=== PATIENT | female | born 1965 | race Caucasian/White ===

== ENCOUNTER 2017-04-06 20:12 | Emergency (ER) | payer OTHER ==
[~2017-04-06] VITALS: Ht 162.6 cm; Wt 86.6 kg
[2017-04-06 20:19] VITALS: Ht 162.6 cm; Wt 86.6 kg
--- NOTE | 2017-04-06 22:26 | ERD ---
ER Documentation Chief Complaint Date/Time DATE: 04/06/17 TIME: 22:24 Chief Complaint "I heard my knee pop a month ago and it still hurts"pt ambulatory withwalkr HPI Patient is a 51-year-old female with hypertension who presents with knee pain. She said that 2.5 months ago she was stretching in a frog pose" heard a pop". She had right knee pain and swelling. She said that since then she has had pain and is feeling "clicks". She is on a pain management program and takes Percocet, gabapentin, and Flexeril for other pain. Upon review of old medical records this is the patient's first visit to the emergency department. She knows that she needs an MRI of her knee but was fed up with the pain today. ROS All systems reviewed and are negative except as per history of present illness. Allergies Allergies: Coded Allergies: latex (Verified Allergy, Severe, SKIN RASH/CLOSED AIRWAY, 04/06/17) sulfamethoxazole (Verified Allergy, Intermediate, HIVES & SWELLING, ) trimethoprim (Verified Allergy, Intermediate, HIVES & SWELLING, 04/06/17) topiramate (Verified Allergy, Mild, NASUSEA & VOMITING & HIVES, 04/06/17) Uncoded Allergies: PENECILLINS (Allergy, Severe, LIPS/TONGUE SWELLING/SOB, 04/06/17) ERYTHROMOCIN (Allergy, Intermediate, HIVES/BLISTERS IN MOUTH, 04/06/17) PMhx/Soc History of Surgery: Yes (NUMEROUS ORTHOPEDIC SX'S) Anesthesia Reaction: No Hx Neurological Disorder: No Hx Respiratory Disorders: No Hx Cardiac Disorders: No Hx Psychiatric Problems: Yes (DEPRESSION, PTSD, PANIC DISORDER) Hx Miscellaneous Medical Probl: No Hx Alcohol Use: No Hx Substance Use: No Hx Tobacco Use: No Smoking Status: Never smoker FmHx Family History: No diabetes Physical Exam Vitals Vital Signs Date Time Temp Pulse Resp B/P Pulse Ox O2 Delivery O2 Flow Rate FiO2 04/06/17 20:19 97.8 104 18 180/95 97 Physical Exam Const: No acute distress Head: Atraumatic Eyes: Normal Conjunctiva ENT: Normal External Ears, Nose and Mouth. Neck: Full range of motion..~ No meningismus. Resp: Clear to auscultation bilaterally Cardio: Regular rate and rhythm, no murmurs Abd: Soft, non tender, non distended. Normal bowel sounds Skin: No petechiae or rashes Back: No midline or flank tenderness Ext: Patient has full range of motion of the right knee but there is a clicking sound with range of motion Neur: Awake and alert Psych: Normal Mood and Affect Procedures/MDM Patient refused x-ray that was ordered. Splint Note Type: Knee immobilizer Location: Right lower extremity Indication: Possible soft tissue injury of the right knee Splint Assessment: Neurovascularly intact post splint placement with good fit. Patient is a 51-year-old female presents with right knee pain for the past 2.5 months. She may have a soft tissue injury of her right knee given the popping sound that she heard after stretching. She refused a x-ray of the right knee but she does have a low likelihood of fracture or dislocation at this time. My concern is more for a soft tissue injury such as ACL or meniscal injury. The patient was placed in a knee immobilizer for support but will need an outpatient MRI. She can follow-up with her primary doctor to obtain this MRI. She can return for any worsening symptoms. She already has pain medication at home. Departure Diagnosis: Primary Impression: Knee pain Laterality: right Chronicity: acute Qualified Code: M25.561 - Acute pain of right knee Additional Impression: Knee injury Encounter type: initial encounter Laterality: right Qualified Code: S89.91XA - Knee injury, right, initial encounter Condition: Fair Patient Instructions: Knee Sprain Referrals: [facility] (PCP) ADRIÁN ALVAREZ MD Additional Instructions: SPECIALIST: YOU HAVE A MEDICAL CONDITION WHICH REQUIRES YOU TO SEE A SPECIALIST WITHIN THE NEXT 1-2 DAYS. PLEASE FOLLOW UP WITH YOUR PRIMARY PHYSICIAN FOR REFFERAL.IF YOU DO NOT HAVE A PRIMARY CARE PHYSICIAN AND/OR YOU CAN NOT AFFORD TO SEE A PHYSICIAN THE FOLLOWING RESOURCES HAVE BEEN SUPPLIED TO YOU. IT IS YOUR RESPONSIBILITY TO BE SEEN BY THE SPECIALIST DORIE RAMIREZ MD Apr 06, 2017 22:26
== END 2017-04-06 22:07 | disposition home or self-care (01) ==
LOC: E/R 20:12
DX: S89.91XA Unspecified injury of right lower leg, initial encounter (principal); X50.9XXA Other and unspecified overexertion or strenuous movements or postures, initial encounter; Y92.9 Unspecified place or not applicable; Z91.040 Latex allergy status
CPT/HCPCS: 29505; Z7502